=== PATIENT | male | born 1935 | race Caucasian/White ===

== ENCOUNTER 2017-02-07 14:07 | Emergency (ER) | payer MEDICARE ==
[~2017-02-07] VITALS: Ht 185.4 cm; Wt 108.0 kg
[2017-02-07 14:18] VITALS: BP 124/63; PULSE 52; RESP 16; TEMP 98.9; O2SAT 96
[2017-02-07] MEDS ORDERED: SIMV20TA PO (14:29)
[2017-02-07] MEDS ORDERED: [UNRECOGNIZED DRUG - OTHER] PO (14:29)
[2017-02-07] MEDS ORDERED: METF500T4 PO (14:29)
[2017-02-07] MEDS ORDERED: SPIRCAP INH (14:29)
[2017-02-07] MEDS ORDERED: ASPI81CH6 CHEW (14:29)
[2017-02-07] MEDS ORDERED: WARF-23 PO (14:29)
[2017-02-07] MEDS ORDERED: WARF-21 PO (14:29)
[2017-02-07] MEDS ORDERED: TETANUS/DIPHTHERIA TOXOID ADULT 0.5 ML VIAL IM ONE (15:00)
--- NOTE | 2017-02-07 15:04 | PD ---
HPI Chief Complaint: Musculoskeletal Complaint Time Seen by Provider: 14:53 Travel History International Travel<30 days: No Contact w/Intl Traveler<30days: No Traveled to known affect area: No History of Present Illness HPI 81-year-old male presents to the emergency department for evaluation after a trip and fall that occurred just prior to arrival. Patient was at [employer] looking at pictures when he turned around and fell down a couple of stairs. He hit his head, but denies LOC. He has abrasions to the forehead, small 1 cm laceration to the right medial hand, abrasions to the left knee. Patient states his tetanus immunization is not up-to-date. He is on Coumadin for A. fib. His last INR last week was 2.1. Patient's states that he only gets his INR checked monthly due to being very stable. The patient denies any pain at this time. No associated symptoms. No vomiting. Lethargic. He denies any neck pain or back pain. No headache. No visual changes. No chest pain or shortness of breath. No abdominal pain. No nausea, vomiting, diarrhea. No other complaints at this time. Moderate severity. PFSH Past Medical History Hx Anticoagulant Therapy: Yes (Warfarin) Atrial Fibrillation: Yes Cardiovascular Problems: Yes (AFIB) High Cholesterol: Yes COPD: Yes Diabetes: Yes (Metformin) Patient Takes Glucophage: Yes Hypertension: Yes Tetanus Vaccination: Unknown Influenza Vaccination: Yes Past Surgical History Surgical History: No Previous Surgery Social History Alcohol Use: Yes (socially) Tobacco Use: No Substance Use: No Allergies-Medications (Allergen,Severity, Reaction): Coded Allergies: No Known Allergies (Verified Allergy, Unknown, 02/07/17) Reported Meds & Prescriptions Reported Meds & Active Scripts Active Keflex (Cephalexin) 500 Mg Cap 500 Mg PO Q8H 7 Days Reported Aspirin Low Dose (Aspirin) 81 Mg Chew 81 Mg CHEW DAILY Spiriva Handihaler (Tiotropium Inh) 18 Mcg Cap 18 Mcg INH DAILY 1 capsule = 18 mcg Metformin ER (Metformin HCl) 500 Mg Christian 500 Mg PO DAILY With evening meal Warfarin 5 Mg Tab 5 Mg PO DAILY EXCEPT WEDNESDAY Warfarin 7.5 Mg Tab 7.5 Mg PO WEDNESDAY [solalol] 40 Mg PO DAILY Simvastatin 20 Mg Tab 20 Mg PO DAILY Review of Systems Except as stated in HPI: all other systems reviewed are Neg Physical Exam Narrative GENERAL: Well-nourished, well-developed elderly male patient, ambulatory. Afebrile. SKIN: Focused skin assessment warm/dry. Patient has abrasions to the forehead, 1 cm superficial laceration to the right medial hand, abrasions to the left anterior knee. HEAD: Normocephalic. ENT: Mucosa pink and moist. No erythema or exudates. No uvular edema. No uvular , palatal, or tonsillar deviation. Airway patent. Nasal turbinates appear normal without nasal blood, purulent drainage or septal hematoma. Bilateral tympanic membranes are clear without erythema or perforation. EYES: No scleral icterus. No injection or drainage. NECK: Supple, trachea midline. No JVD or lymphadenopathy. CARDIOVASCULAR: Regular rate and rhythm without murmurs, gallops, or rubs. RESPIRATORY: Breath sounds equal bilaterally. No accessory muscle use. Lungs sounds are clear to auscultation. GASTROINTESTINAL: Abdomen soft, non-tender, nondistended. MUSCULOSKELETAL: No cyanosis, or edema. BACK: Nontender without obvious deformity. No CVA tenderness. Patient has no midline spinal tenderness. He has full rotation cervical spine without pain or stiffness. Data Data Last Documented VS Vital Signs Date Time Temp Pulse Resp B/P (MAP) Pulse Ox O2 Delivery O2 Flow Rate FiO2 02/07/17 14:18 98.9 52 16 124/63 (83) [address] Brain W/O Iv Contrast(Rout) (02/07/17 ) Knee, Complete (4vws) (02/07/17 ) Tetanus/Diphtheria Tox Adult (Tetanus/Di (02/07/17 15:00) MDM Medical Decision Making Medical Screen Exam Complete: Yes Emergency Medical Condition: Yes Medical Record Reviewed: Yes Interpretation(s) Last Impressions Head CT 02/07/17 0000 Signed Impressions: Service Date/Time: Tuesday, February 07, 2017 15:25 - CONCLUSION: Slight atrophic and small vessel ischemic changes without any evidence for acute hemorrhage or mass effect. Matt Alberto MD X-ray left knee - CONCLUSION: Intact total knee arthroplasty for technique. Differential Diagnosis Closed head injury versus intracranial hemorrhage versus knee fracture versus knee sprain versus knee contusion Narrative Course 81-year-old male presents to the emergency department for evaluation after trip and fall. He is on Coumadin for A. fib. His INR last week was 2.1. He denies any complaints or pain at this time. Tetanus immunization is updated. Due to laceration being very superficial and small, this will be fixed with Dermabond. CT of the brain is ordered and pending. CT of the brain shows no evidence of acute hemorrhage or mass effect. X-ray left knee shows intact bony arthroplasty for technique. Patient was discharged with a prescription for Keflex to prevent infection. He is instructed on proper wound care. He verbalizes agreement and understanding. The patient was discharged in stable condition with instructions, including return instructions and follow up instructions. Procedures Procedure Narrative LACERATION LOCATION: Right hand LENGTH: 1 cm NUMBER OF STITCHES/MINISTERIO: Steri-Strip and Dermabond REPAIR: The area of the laceration was prepped with Betadine and sterilely draped. The wound was copiously irrigated and explored without evidence of foreign body, tendon injury or neurovascular injury. The wound was closed using one Steri-Strip and Dermabond. This was a single layer repair. A sterile dressing was applied. The patient was advised to keep the dressing clean and dry. Patient tolerated the procedure well. Diagnosis Primary Impression: Closed head injury Qualified Codes: S09.90XA - Unspecified injury of head, initial encounter Additional Impression: Abrasion head Referrals: Primary Care Physician call for appointment Patient Instructions: General Instructions, Head Injury (ED) Additional Instructions: Clean abrasions twice daily with soap and water and apply over the counter antibiotic ointment. Skin glue to hand will come off on its own. Do not pick at it or submerse in water. Do not apply creams or lotions to skin glue. Take antibiotic as directed until gone. Follow-up with your primary care physician. Return to the emergency department for any acute worsening of symptoms. Med/Other Pt SpecificInfo: Prescription(s) given Scripts Cephalexin (Keflex) 500 Mg Cap 500 MG PO Q8H for Infection for 7 Days, #21 CAP 0 Refills Prov: Caren Cervantes PAT 02/07/17 Disposition: 01 DISCHARGE HOME Condition: Stable Caren Cervantes Feb 07, 2017 15:04
--- NOTE | 2017-02-07 15:46 | RADRPT ---
EXAM DATE/TIME: 02/07/2017 15:25 [facility] COMPARISON: No previous studies available for comparison. INDICATIONS : Fell and hit head. Frontal abrasion. RADIATION DOSE: 65.20 CTDIvol (mGy) MEDICAL HISTORY : Hypercholesterolemia. Chronic obstructive pulmonary disease. Hypertension.Anticoagulant therapy. SURGICAL HISTORY : None. ENCOUNTER: Initial ACUITY: 1 day PAIN SCALE: 4/10 LOCATION: frontal TECHNIQUE: Multiple contiguous axial images were obtained of the head. Using automated exposure control and adj ustment of the mA and/or kV according to patient size, radiation dose was kept as low as reasonably a chievable to obtain optimal diagnostic quality images. DICOM format image data is available electro nically for review and comparison. FINDINGS: There is no evidence for intracranial hemorrhage, mass effect, mass lesions, or edema. The visualize d bony structures appear intact. Slight degree of brain atrophy is seen. Slight periventricular whit e matter changes are seen nonspecific mostly consistent with chronic small vessel ischemic changes. There are no signs of acute infarction for technique. CONCLUSION: Slight atrophic and small vessel ischemic changes without any evidence for acute hemorrhage or mass effect. Matt Alberto MD on February 07, 2017 at 15:43 Board Certified Radiologist. This report was verified electronically.
[2017-02-07] MEDS ORDERED: CEPH-460 PO (16:00)
--- NOTE | 2017-02-07 16:01 | RADRPT ---
EXAM DATE/TIME: 02/07/2017 15:34 [facility] COMPARISON: No previous studies available for comparison. INDICATIONS : Fell today, has some swelling and abrasions to left knee MEDICAL HISTORY : None. SURGICAL HISTORY : knee replacement ENCOUNTER: Initial ACUITY: 1 day PAIN SCORE: 0/10 LOCATION: Left knee FINDINGS: Total knee arthroplasty is in place. The femoral, tibial, and patellar components appear intact. Th ere are no signs of loosening or fracture. CONCLUSION: Intact total knee arthroplasty for technique. FierroTrevor Alberto MD on February 07, 2017 at 15:58 Board Certified Radiologist. This report was verified electronically.
== END 2017-02-07 16:16 | disposition home or self-care (01) ==
LOC: PHEFT 14:07
DX: S09.90XA Unspecified injury of head, initial encounter (principal); S00.81XA Abrasion of other part of head, initial encounter; S61.411A Laceration without foreign body of right hand, initial encounter; I48.91 Unspecified atrial fibrillation; E78.00 Pure hypercholesterolemia, unspecified; J44.9 Chronic obstructive pulmonary disease, unspecified; E11.9 Type 2 diabetes mellitus without complications; I10 Essential (primary) hypertension; W10.9XXA Fall (on) (from) unspecified stairs and steps, initial encounter; Y92.511 Restaurant or cafe as the place of occurrence of the external cause; Z23 Encounter for immunization; Z79.01 Long term (current) use of anticoagulants; Z79.82 Long term (current) use of aspirin; Z79.84 Long term (current) use of oral hypoglycemic drugs
CPT/HCPCS: 12001; 70450; 73564; 90471; 90714